=== PATIENT | female | born 1970 | race Caucasian/White ===

== ENCOUNTER 2023-05-30 07:54 | Outpatient (CLI) | payer OTHER, SELFPAY ==
--- NOTE | 2023-05-30 08:08 | US_ITS ---
FINAL REPORT CLINICAL HISTORY: ABDOMINAL PAIN FINDINGS: ULTRASOUND RIGHT UPPER QUADRANT Sonographic imaging of the right upper quadrant was obtained. The pancreas is partially obscured. The liver is unremarkable. There is no evidence of gallstones. There may be a small amount of sludge in the gallbladder. There is no gallbladder wall thickening. There is no biliary ductal dilatation. The common duct is normal at 3 mm. Limited images of the right kidney are unremarkable. IMPRESSION: Small amount of sludge in the gallbladder. Reviewed, Interpreted and Dictated by Valente Nguyen MD Transcribed by Peggy Foreman Authenticated and [facility]
== END 2023-05-30 23:59 ==
LOC: RAD 07:57
PROVIDERS: PCP Nurse Practitioner; Visit Provider Nurse Practitioner
DX: R10.11 Right upper quadrant pain (principal)
CPT/HCPCS: 76705

== ENCOUNTER 2023-06-13 10:17 | Outpatient (CLI) | payer OTHER, SELFPAY ==
--- NOTE | 2023-06-13 10:24 | NM_ITS ---
FINAL REPORT CLINICAL HISTORY: RUQ PAIN, mild pain during cck 10:37 am 8.0 mci tc choletec 1.41 mcg of cck COMPARISON: None FINDINGS: Sequential anterior projection images of the abdomen were obtained after the intravenous injection of 8 mCi technetium 99m Choletec. There is normal uptake of radiotracer by the liver. The bile ducts are visualized by time minutes. Gallbladder activity is seen by 40 minutes. Bowel activity is noted by 15 minutes. After 1 hour, 1.41 ?g of CCK was injected intravenously for calculation of gallbladder ejection fraction. The patient reported mild abdominal pain during the CCK injection. The gallbladder ejection fraction is 97%, which is within normal limits. IMPRESSION: No evidence of cystic duct or bile duct obstruction. Normal gallbladder ejection fraction of 97%. Reviewed, Interpreted and Dictated by Randall Stafford III, MD Transcribed by Carmen Mclean Authenticated and [facility]
[2023-06-13] MEDS: SINCALIDE 1.4 MCG in 0.9 % SODIUM CHLORIDE 50 ML 100 MCG IV (12:48)
[2023-06-13] MEDS: ISOTOPE CHOLETECH;1 DOSE (UP TO 15 MCI) IV (12:48)
[2023-06-13] MEDS: SODIUM CHLORIDE 0.9% 10ML SYR (RAD ONLY) 10 ML IV (12:48)
== END 2023-06-13 23:59 ==
LOC: RAD 10:17
PROVIDERS: PCP Nurse Practitioner; Visit Provider Nurse Practitioner
DX: R10.11 Right upper quadrant pain (principal)
CPT/HCPCS: 78227; A9537; J2805